=== PATIENT | female | born 1940 | race Caucasian/White ===

== ENCOUNTER 2018-11-16 21:18 | Emergency (ER) | payer MEDICARE ==
--- NOTE | 2018-11-17 07:32 | CR ---
Right tibia and fibula: Two views of the right tibia and fibula were obtained. Comparison: No previous tibia or fibula exam. Vascular calcification is seen. Osteopenia is noted. No acute fracture or other bony abnormality is seen. Impression: 1. Vascular calcification osteopenia. 2. No acute bony abnormality is appreciated. Diagnostic code #2
== END 2018-11-17 01:26 | disposition left against medical advice (07) ==
LOC: JD.ED 21:18
DX: Z53.21 Procedure and treatment not carried out due to patient leaving prior to being seen by health care provider (principal)
CPT/HCPCS: 73590-26-RT; 73590-RT